=== PATIENT | female | born 1950 | race Caucasian/White ===

== ENCOUNTER 2017-12-29 08:27 | Emergency (ER) | payer MEDICARE ==
[2017-12-29] MEDS ORDERED: Tetan/Diph/Pertus SYR(Tdap)* 0.5 ML SYR(BOOSTRIX) use SYR IM ONE (09:02)
--- NOTE | 2017-12-29 09:03 | ED ---
Head Injury - HPI Summary HPI Summary: 67-year-old female presents with head injury today. She states that she tripped over her feet. She states she felt little dizzy afterwards but has since resolved. No change of vision. No nausea or no vomiting. no loss consciousness. She denies being on blood thinners. She states that 5 days prior she had hit her head on her tailgate as the door was coming down. No loss conscious at that time. She denies any other injury. She has some bruising to her hand with full range of motion or numbness or tingling. She is right-handed. No other injury. No neck pain. fall was mechanical with no chest pain or shortness of breath. She has no medical conditions. Her tetanus is not up-to-date. She has an old abrasion to her forehead. - History Of Current Complaint Chief Complaint: EDHeadInjury Stated Complaint: HEAD INJURY Time Seen by Provider: 12/29/17 08:56 Pain Intensity: 7 - Allergies/Home Medications Allergies/Adverse Reactions: Allergies Allergy/AdvReac Type Severity Reaction Status Date / Time No Known Allergies Allergy Verified 12/29/17 09:02 PMH/Surg Hx/FS Hx/Imm Hx Endocrine/Hematology History: Denies: Hx Anticoagulant Therapy Cardiovascular History: Denies: Hx Myocardial Infarction Infectious Disease History: No Infectious Disease History: Denies: Traveled Outside the [place] in Last 30 Days - Family History Known Family History: Positive: Hypertension - Social History Substance Use Type: Reports: None Smoking Status (MU): Unknown if Ever Smoked Review of Systems Negative: Fever Negative: Chest Pain Negative: Shortness Of Breath Negative: Vomiting, Nausea Positive: Headache All Other Systems Reviewed And Are Negative: Yes Physical Exam Triage Information Reviewed: Yes Vital Signs On Initial Exam: Initial Vitals Temp Pulse Resp BP Pulse Ox 97.0 F 65 16 160/100 100 12/29/17 08:30 12/29/17 08:30 12/29/17 08:30 12/29/17 08:30 12/29/17 08:30 Vital Signs Reviewed: Yes Appearance: Positive: Well-Appearing Skin: Positive: Warm, Dry, Other - contusion to forehead, small abrasion healing to forehead Head/Face: Positive: Normal Head/Face Inspection, Other - no step off, racoon eyes, ruiz sign Eyes: Positive: Normal, EOMI, SCOT, Conjunctiva Clear ENT: Positive: Normal ENT inspection, Pharynx normal, TMs normal Respiratory/Lung Sounds: Positive: Clear to Auscultation, Breath Sounds Present Cardiovascular: Positive: Normal, RRR Abdomen Description: Positive: Nontender, Soft Bowel Sounds: Positive: Present Musculoskeletal: Positive: Normal Neurological: Positive: Sensory/Motor Intact, Alert, Oriented to Person Place, Time, CN Intact II-III Psychiatric: Positive: Normal - [place] Coma Scale Best Eye Response: 4 - Spontaneous Best Motor Response: 6 - Obeys Commands Best Verbal Response: 5 - Oriented Coma Scale Total: 15 Diagnostics - Vital Signs Vital Signs Temp Pulse Resp BP Pulse Ox 12/29/17 08:30 97.0 F 65 16 160/100 100 - Laboratory Lab Statement: Any lab studies that have been ordered have been reviewed, and results considered in the medical decision making process. - CT brain CT Interpretation: No Acute Changes CT Interpretation Completed By: Radiologist Head Injury Course/Dx Course Of Treatment: 67-year-old female presents with head injury today. She states that she tripped over her feet. She states she felt little dizzy afterwards but has since resolved. No change of vision. No nausea or no vomiting. no loss consciousness. She denies being on blood thinners. She states that 5 days prior she had hit her head on her tailgate as the door was coming down. No loss conscious at that time. She denies any other injury. She has some bruising to her hand with full range of motion or numbness or tingling. She is right-handed. No other injury. No neck pain. fall was mechanical with no chest pain or shortness of breath. She has no medical conditions. Her tetanus is not up-to-date. She has an old abrasion to her forehead. on exam has normal neuro exam. got CT due to age and repeat trauma. CT shows no acute findings. will have est care with primary to follow up. patient understand and agrees with plan. - Diagnoses Differential Diagnosis/HQI/PQRI: Concussion Without LOC, Contusion, Intracranial Bleed Provider Diagnoses: Head injury Discharge - Sign-Out/Discharge Documenting (check all that apply): Patient Departure - Discharge Plan Condition: Good Disposition: HOME Patient Education Materials: Head Injury (ED) Referrals: [facility] [Outside] Additional Instructions: Place ice on area as needed Take Tylenol or ibuprofen for headache every 6 hours Modify activities as tolerated Est care with primary Return to ED if develop any new or worsening symptoms - Billing Disposition and Condition Condition: GOOD Disposition: Home
--- NOTE | 2017-12-29 09:43 | RAD ---
INDICATION: Intracranial injury COMPARISON: None TECHNIQUE: Noncontrast axial source images were acquired from the skull base to the vertex. FINDINGS: Ventricles/sulci: The ventricles and cisterns are normal in size and configuration for age. Brain parenchyma: There is no focal parenchymal finding, evidence of intracranial mass, or intracranial mass effect. Intracranial hemorrhage:None. Extra-axial spaces: There are no abnormal extra axial fluid collections or evidence of extra-axial mass. Calvarium: There is no calvarial fracture or other calvarial abnormality. Scalp: There is no evidence of scalp or extracalvarial soft tissue abnormality. Paranasal sinuses/mastoid: The paranasal sinuses and mastoid air cells are clear. Other: None. IMPRESSION: NEGATIVE EXAMINATION
[2017-12-29 09:56] VITALS: BP 128/75
== END 2017-12-29 09:56 | disposition home or self-care (01) ==
LOC: ED 08:27
DX: S09.90XA Unspecified injury of head, initial encounter (principal); R51 Headache; W01.0XXA Fall on same level from slipping, tripping and stumbling without subsequent striking against object, initial encounter; Y92.9 Unspecified place or not applicable
CPT/HCPCS: 70450; 90471; 90715; 99282